=== PATIENT | male | born 2000 | race Caucasian/White ===

== ENCOUNTER 2022-03-07 15:03 | Emergency (ER) | payer MEDICAID, SELFPAY ==
[2022-03-07 15:59] VITALS: BP 134/76; PULSE 55; RESP 18; TEMP 35.7; O2SAT 98; BMI 24.2
== END 2022-03-07 22:21 | disposition left against medical advice (07) ==
PROVIDERS: Emergency Provider Emergency Medicine; PCP Pediatrics Adolescent Medicine
DX: S67.02XA Crushing injury of left thumb, initial encounter (principal); X58.XXXA Exposure to other specified factors, initial encounter; Y93.9 Activity, unspecified; Y92.9 Unspecified place or not applicable; Y99.9 Unspecified external cause status
CPT/HCPCS: 99281; 99283